=== PATIENT | female | born 1970 | race Two or more races ===

== ENCOUNTER 2018-05-15 19:05 | Emergency (ER) | payer SELFPAY ==
[~2018-05-15] VITALS: Ht 157.5 cm; Wt 61.2 kg
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
[2018-05-15] MEDS ORDERED: NKM (19:26)
[2018-05-15] MEDS ORDERED: Morphine Sulfate 4mg/ml Inj IVP ONE ×2 (19:30→20:15)
[2018-05-15 20:02] LABS: BASOPHILS % (AUTO) 1.7 % (0.0-2.0); EOSINOPHILS % (AUTO) 2.6 % (0.0-3.0); HEMOGLOBIN 15.3 G/DL (12.0-16.0); LYMPHOCYTES % (AUTO) 20.5 % (20.0-45.0); MEAN CORPUSCULAR VOLUME 98 FL (80-99); MONOCYTES % (AUTO) 7.2 % (1.0-10.0); PLATELET COUNT 240 K/UL (150-450); RED BLOOD COUNT 4.41 M/UL (4.20-5.40); RED CELL DISTRIBUTION WIDTH 11.8 % (11.6-14.8); WHITE BLOOD COUNT 9.1 K/UL (4.8-10.8)
[2018-05-15 20:13] LABS: ANION GAP 12 mmol/L (5-15); BLOOD UREA NITROGEN 17 mg/dL (7-18); CALCIUM 9.4 MG/DL (8.5-10.1); CARBON DIOXIDE 22 MMOL/L (21-32); CHLORIDE 107 MMOL/L (98-107); CREATININE 0.9 MG/DL (0.55-1.30); POTASSIUM 3.1 MMOL/L (3.5-5.1); SODIUM 141 MMOL/L (136-145)
[2018-05-15 20:16] LABS: ALANINE AMINOTRANSFERASE 27 U/L (12-78); ALBUMIN 4.2 G/DL (3.4-5.0); ALBUMIN/GLOBULIN RATIO 1.2 (1.0-2.7); ALKALINE PHOSPHATASE 66 U/L (46-116); ASPARTATE AMINO TRANSFERASE 15 U/L (15-37); BILIRUBIN,TOTAL 0.3 MG/DL (0.2-1.0)
[2018-05-15] MEDS ORDERED: NORCO 5-325 TA1 EACH ORAL (20:48)
[2018-05-15] MEDS ORDERED: IBUPROFEN400 MG ORAL (20:48)
[2018-05-15 21:35] VITALS: BP 176/93
--- NOTE | 2018-05-16 11:42 | Diagnostic Imaging Report ---
Indication: pain. Left hand pain Findings: 3 views of the left hand were obtained. Normal alignment is demonstrated. No acute fractures, erosions, or periosteal reaction are seen. Soft tissues are unremarkable. Impression: No acute findings.
--- NOTE | 2018-05-16 11:43 | Diagnostic Imaging Report ---
Indication: Pain Forearm pain Findings: 2 views of the left forearm were obtained. No acute fractures, malalignment, erosions or periostitis are identified. Bone mineralization is within normal limits. Soft tissues are unremarkable. There is ossification adjacent to the medial epicondyle humerus which may be within the common flexor tendon origin. Correlate clinically. Impression: Negative for acute injury. Possible old calcific epicondylitis-tendinitis. Correlate clinically
--- NOTE | 2018-05-16 11:43 | Diagnostic Imaging Report ---
Indication: Pain Findings: 2 views of the left humerus were obtained. No acute fractures, malalignment, erosions or periostitis are identified. Bone mineralization is within normal limits. Soft tissues are unremarkable. Impression: No acute injury.
--- NOTE | 2018-05-16 11:44 | Diagnostic Imaging Report ---
Indication: pain Right hand pain Findings: 2 views of the right hand were obtained. No obvious fracture or malalignment identified. Pulse oximeter on the index finger obscures the distal and middle phalange. IMPRESSION: No acute injury. Suboptimal study
== END 2018-05-15 21:55 | disposition home or self-care (01) ==
LOC: EDBD 19:05 → EMR 21:48
DX: S60.222A Contusion of left hand, initial encounter (principal); M25.541 Pain in joints of right hand; S50.12XA Contusion of left forearm, initial encounter; V49.9XXA Car occupant (driver) (passenger) injured in unspecified traffic accident, initial encounter; Y92.410 Unspecified street and highway as the place of occurrence of the external cause; Y92.9 Unspecified place or not applicable
CPT/HCPCS: 36415; 73060; 73090; 73130; 80053; 84703; 85025; 85610; 85730; 96374; 96375; 99284; J2270; J2405